=== PATIENT | male | born 1945 | race Caucasian/White ===

== ENCOUNTER 2018-10-11 09:02 | Emergency (ER) | payer MEDICARE, MEDICAID ==
[~2018-10-11] VITALS: Ht 170.2 cm; Wt 90.9 kg
[~2018-10-11 09:02] MED LIST: ASPI81TA52 PO; ATOR20TA38 PO; METO-429 PO; NIFE30TA23 PO; NOVO3I SC; PANT40TA3 PO; TAMS0.4C2 PO
[2018-10-11 09:12] VITALS: Ht 170.2 cm; Wt 90.9 kg
[2018-10-11] MEDS ORDERED: ALBUTEROL 0.083% (NEB) 2.5 MG/3 ML AMP NEB STA (09:25)
[2018-10-11] MEDS ORDERED: IPRATROPIUM (NEB) 0.5 MG/2.5 ML AMP NEB STA (09:25)
[2018-10-11] MEDS ORDERED: METO-429 PO (10:41)
[2018-10-11] MEDS ORDERED: ATOR40TA68 PO (10:42)
[2018-10-11] MEDS ORDERED: INSU100I33 SC (10:42)
[2018-10-11] MEDS ORDERED: BENA20TA4 PO (10:42)
[2018-10-11] MEDS ORDERED: TAMS0.4C2 PO (10:43)
[2018-10-11] MEDS ORDERED: ALBU18HF INHALATION (11:22)
[2018-10-11] MEDS ORDERED: ACET500C5 PO (11:22)
[2018-10-11] MEDS ORDERED: AZIT250T PO (11:22)
--- NOTE | 2018-10-11 11:59 | ERD ---
ER Documentation Chief Complaint Chief Complaint PT BIB AMBULANCE FOR CHEST PAIN X2 DAYS, NO SOB HPI This is a 73-year-old gentleman who presents to the emergency room with approximately 2 days of cough and congestion. The cough is slightly productive of yellowish type sputum. He denies any fevers or chills. He notes anterior ch est wall pain with coughing, no exertional symptoms, no pleuritic pain. The patient also notes many months of left upper and left lower extreme knee paresthesias that is currently being worked up by his doctor and not acutely changed today. During the patient's encounter translation services were utilized Language: Hungarian Source: Video ROS All systems reviewed and are negative except as per history of present illness. Medications Home Meds Active Scripts Acetaminophen* (Tylophen*) 500 Mg Capsule, 1 CAP PO Q6H PRN for PAIN AND OR ELEVATED TEMP, #20 CAP Prov:HIRAM BECKMAN MD 10/11/18 Azithromycin* (Zithromax*) 250 Mg Tablet, 250 MG PO .ZPACK DIRECTED, #6 TAB TAKE 500 MG (2 TABS) THE FIRST DAY THEN 250 MG (1 TAB) DAYS 2-5 Prov:HIRAM BECKMAN MD 10/11/18 Albuterol Sulfate* (Ventolin HFA*) 18 Gm Hfa.aer.ad, 2 PUFF INHALATION Q4H, #1 INHALER Prov:HIRAM BECKMAN MD 10/11/18 Reported Medications Tamsulosin Hcl* (Tamsulosin Hcl*) 0.4 Mg Cap.er.24h, 0.4 MG PO HS, CAP 10/11/18 Insulin Glargine,Hum.rec.anlog (Basaglar Kwikpen U-100) 100 Unit/1 Ml Insuln.pen, 15 UNIT SC QHS, EA 10/11/18 Atorvastatin* (Atorvastatin*) 40 Mg Tablet, 40 MG PO QHS, #30 TAB 10/11/18 Benazepril Hcl* (Benazepril Hcl*) 20 Mg Tablet, 20 MG PO DAILY, #30 TAB 10/11/18 Metoprolol Tartrate* (Lopressor*) 50 Mg Tab, 50 MG PO BID, #60 TAB 10/11/18 Discontinued Reported Medications Pantoprazole* (Protonix*) 40 Mg Tablet.dr, 40 MG PO DAILY, TAB 10/25/15 Insulin Aspart* (Novolog Insulin Pen*) 100 Unit/Ml Soln, 0 SC .SLIDING SCALE AC, EA 10/25/15 Tamsulosin Hcl* (Tamsulosin Hcl*) 0.4 Mg Cap.er.24h, 0.4 MG PO HS, CAP 10/25/15 Atorvastatin Calcium* (Atorvastatin Calcium*) 20 Mg Tablet, 20 MG PO QHS, #30 TAB 10/25/15 Metoprolol Tartrate* (Lopressor*) 50 Mg Tab, 50 MG PO BID, #60 TAB 10/25/15 Nifedipine* (Nifedipine ER*) 30 Mg Tablet.sa, 30 MG PO DAILY, TAB.SA 10/25/15 Aspirin (Low Dose Aspirin) 81 Mg Tablet.dr, 81 MG PO DAILY, #30 TAB 10/25/15 Allergies Allergies: Coded Allergies: nitroglycerin (Verified Allergy, Unknown, "AWOKE IN ICU AFTER RECEIVED SUBLINGUAL MED", 10/11/18) PMhx/Soc History of Surgery: Yes (EXPLOR LAP) Anesthesia Reaction: No Hx Neurological Disorder: No Hx Respiratory Disorders: No Hx Cardiac Disorders: Yes (htn) Hx Psychiatric Problems: No Hx Miscellaneous Medical Probl: Yes (DM, HIGH CHOLESTEROL) Hx Alcohol Use: No Hx Substance Use: No Hx Tobacco Use: No Smoking Status: Former smoker FmHx Family History: No diabetes Physical Exam Vitals Vital Signs Date Temp Pulse Resp B/P (MAP) Pulse Ox O2 O2 Flow FiO2 Time Delivery Rate 10/11/18 85 18 96 21 09:37 10/11/18 Nasal 2 09:31 Cannula 10/11/18 97.8 62 17 138/55 97 09:12 (82) Physical Exam General: Well developed, well nourished, no acute distress Head: Normocephalic, atraumatic. Eyes: Pupils equally reactive, EOM intact ENT: Moist mucous membranes Neck: Supple, no lymphadenopathy Respiratory: Scant wheezing, no distress Cardiovascular: RRR, no murmurs, rubs, or gallops Abdominal: Soft, non-tender, non-distended, no peritoneal signs : Deferred MSK: No edema, no unilateral swelling, 5/5 strength Neurologic: Alert and oriented, moving all extremities, normal speech, no focal weakness, no cerebellar signs Skin: No rash Psych: Normal mood Result Diagram: 10/11/1813 10/11/1813 Results 24 hrs Laboratory Tests Test 10/11/18 09:13 White Blood Count 7.7 10^3/ul Red Blood Count 4.11 10^6/ul Hemoglobin 12.7 g/dl Hematocrit 38.3 % Mean Corpuscular Volume 93.2 fl Mean Corpuscular Hemoglobin 30.9 pg Mean Corpuscular Hemoglobin Concent 33.2 g/dl Red Cell Distribution Width 11.8 % Platelet Count 171 10^3/UL Mean Platelet Volume 11.2 fl Immature Granulocytes % 0.400 % Neutrophils % 56.5 % Lymphocytes % 31.0 % Monocytes % 8.4 % Eosinophils % 3.2 % Basophils % 0.5 % Nucleated Red Blood Cells % 0.0 /100WBC Immature Granulocytes # 0.030 10^3/ul Neutrophils # 4.4 10^3/ul Lymphocytes # 2.4 10^3/ul Monocytes # 0.7 10^3/ul Eosinophils # 0.3 10^3/ul Basophils # 0.0 10^3/ul Nucleated Red Blood Cells # 0.0 10^3/ul Sodium Level 139 mmol/L Potassium Level 4.4 mmol/L Chloride Level 104 mmol/L Carbon Dioxide Level 28 mmol/L Anion Gap 7 Blood Urea Nitrogen 18 mg/dl Creatinine 1.16 mg/dl Est Glomerular Filtrat Rate mL/min mL/min Glucose Level 237 mg/dl Calcium Level 9.0 mg/dl Troponin I < 0.012 ng/ml Current Medications Medications Dose Sig/Enrique Start Time Status Last (Trade) Ordered Route PRN Stop Time Admin Dose Reason Admin Albuterol 2.5 mg ONCE STAT 10/11/18 DC 10/11/18 (Proventil NEB 09:25 10/11/18 09:36 0.083% (Neb)) 09:26 Ipratropium 0.5 mg ONCE STAT 10/11/18 DC 10/11/18 Cameron NEB 09:25 10/11/18 09:36 (Atrovent 09:26 0.02% (Neb)) Procedures/MDM EKG, MONITORS, & DIAGNOSTIC IMAGING: EKG: I reviewed and interpreted a 12-lead EKG. Rhythm: Normal sinus rhythm ST Changes: No contiguous ST segment elevations T waves: No contiguous T wave inversions Impression: No evidence of acute cardiac ischemia Chest x-ray: I reviewed and interpreted a 1 view of the chest Mediastinum: No enlargement Cardiac silhouette: No cardiomegaly Airspace: Clear lung moeller bilaterally without evidence of pneumothorax Bones: No evidence of fracture LAB INTERPRETATION: I reviewed the laboratory testing and it shows no evidence of acute process MEDICAL DECISION MAKING: The patient's chest pain is very consistent with muscular skeletal etiology likely secondary to cough, acute bronchitis versus community acquired pneumonia. X-ray imaging and breathing treatment would be appropriate. His paresthesias subacute, unchanged and not an acute issue today. He is currently being evaluated for his paresthesia over the past 4-5 months through his primary care physician. I do not believe this is consistent with dissection or acute stroke. ER COURSE: * Patient was given a breathing treatment. EKG is nonischemic, troponin is negative. At this point I do not believe this is consistent with cardiac etiology. More likely upper respiratory tract infection. Given the patient's age and possible atelectasis on chest x-ray empiric azithromycin might be reasonable. The patient is safe for discharge. CONSULTATION: None DISPOSITION PLAN: The patient does not have an identifiable emergent medical condition that warrants inpatient hospitalization at this time. The patient is deemed safe for discharge with outpatient follow-up. We discussed follow up with the patient's primary care doctor within 24 to 48 hours as needed. We also discussed return to the emergency room for worsening symptoms or worsening condition. Outpatient referral: None required Discharge Medications: Ventolin, azithromycin, Tylenol Departure Diagnosis: Primary Impression: Cough Additional Impressions: Chest wall pain Acute bronchitis Bronchitis organism: unspecified organism Qualified Codes: J20.9 - Acute bronchitis, unspecified Condition: Stable Patient Instructions: Chest Wall Strain Referrals: [facility] () Usted se gore hecho un examen mdico de control que le indica que no est en vivien condicin que requiera tratamiento urgente en el Departamento de Emergencia. Un estudio ms profundo y el tratamiento de reid condicin pueden esperar sin ningn riesgo hasta que usted sea atendida/o en el consultorio de reid mdico o vivien clnica. Es responsabilidad suya arreglar vivien vicky para el seguimiento del ryanne. MANEJO DE CONDICIONES NO URGENTES EN EL FUTURO 1) Si usted tiene un mdico de atencin primaria: Usted debera llamar a reid mdico de atencin primaria antes de venir al departamento de emergencia. Despus de las horas de consultorio, reid doctor o reid asociado/a est disponible por telfono. El mdico o enfermero de roland en el servicio telefnico puede asesorarle por danae medio para atender el problema, o ryanne contrario se puede programar vivien vicky. 2) Si usted no tiene un mdico de atencin primaria: Llame al mdico o clnica de referencia que aparece abajo steff las horas de consultorio para hacer vivien vicky para que le vean. CLINICAS: [facility] [phone] [facility] [phone] [facility] [phone] [address] [facility]. [facility] [phone] [facility] [facility] [facility] [phone] [facility] [phone] [address] [facility]. [facility] () Usted se gore hecho un examen mdico de control que le indica que no est en vivien condicin que requiera tratamiento urgente en el Departamento de Emergencia. Un estudio ms profundo y el tratamiento de reid condicin pueden esperar sin ningn riesgo hasta que usted sea atendida/o en el consultorio de reid mdico o vivien clnica. Es responsabilidad suya arreglar vivien vicky para el seguimiento del ryanne. MANEJO DE CONDICIONES NO URGENTES EN EL FUTURO 1) Si usted tiene un mdico de atencin primaria: Usted debera llamar a reid mdico de atencin primaria antes de venir al departamento de emergencia. Despus de las horas de consultorio, reid doctor o reid asociado/a est disponible por telfono. El mdico o enfermero de roland en el servicio telefnico puede asesorarle por danae medio para atender el problema, o ryanne contrario se puede programar vivien vicky. 2) Si usted no tiene un mdico de atencin primaria: Llame al mdico o condado institucions de referencia que aparece abajo steff las horas de consultorio para hacer vivien vicky para que le vean. SI USTED NO PUEDE PAGAR PARA SUNNY UN MEDICO puede ir a: [facility] [id number] [place] [address] [facility] [address] [place] [address] [facility] [address] [place] [address] [address] [facility] [address] [place], [place] [id number] Additional Instructions: Llame al doctor nombrado abajo (Referral Sources) MAANA y shira vivien VICKY PARA DENTRO DE VIVIEN SEMANA. Dgale a la secretaria que nosotros le instruimos hacer esta vicky.Avise o llame si reid condicin se empeora antes de la vicky. HIRAM BECKMAN MD Oct 11, 2018 11:59
[2018-10-11 12:12] VITALS: BP 139/93; PULSE 55; RESP 18
[2018-10-11] MEDS ORDERED: ASPI-817 PO (12:36)
[2018-10-11] MEDS ORDERED: METF100010 PO (12:36)
[2018-10-11] MEDS ORDERED: ACET325T33 PO (12:37)
[2018-10-11] MEDS ORDERED: ERGO500013 PO (12:37)
[2018-10-11] MEDS ORDERED: LORA10TA3 PO (12:38)
[2018-10-11] MEDS ORDERED: ALBU2.5V3 NEB (12:39)
[2018-10-11] MEDS ORDERED: AMLO-147 PO (12:39)
[2018-10-11] MEDS ORDERED: MINE3.5O31 BOTH EYES (12:40)
== END 2018-10-11 12:44 | disposition home or self-care (01) ==
LOC: E/R 09:02
DX: J20.9 Acute bronchitis, unspecified (principal); I10 Essential (primary) hypertension; E11.9 Type 2 diabetes mellitus without complications; R05 Cough; Z87.891 Personal history of nicotine dependence; Z79.4 Long term (current) use of insulin
CPT/HCPCS: 36415; 71045; 80048; 84484; 85025; 93005; 94664